=== PATIENT | male | born 2000 | race Caucasian/White ===

== ENCOUNTER 2021-04-23 16:11 | Emergency (ER) | payer OTHER, SELFPAY ==
[2021-04-23 16:17] VITALS: BP 164/91; PULSE 111; RESP 18; TEMP 36.3; O2SAT 100
--- NOTE | 2021-04-23 16:19 | W.ED.GENAD ---
Discharge Plan Disposition Patient Disposition: HOME Condition: Stable Discharge Details Clinical Impression: Foot laceration Primary Care Provider: Unknown,Unknown ED Provider: Mercedes An Home Meds and New Rx's Prescriptions: New cephalexin 500 mg capsule 500 mg PO TID 5 Days Qty: 15 RF: 0 Continued loratadine [Claritin] 10 mg Tablet 10 mg PO DAILY PRNRF: 0 Discharge Instructions Instructions: Laceration (ED) Additional Instructions: Keep wound clean and dry. You can take the dressing off to shower and let the water and soap run down over the wound. Do not scrub the area. Be sure to cover the area with a dressing when walking. Otherwise you can keep the wound open to air if resting foot upright at home to allow edges to dry and heal. Take the antibiotics as directed until finished. Alternate tylenol and motrin as needed and directed for pain. Follow-up with your primary care doctor in 7 to 10 days for suture removal. Return immediately to the emergency department if you develop any worsening or new concerning symptoms such as fever, redness, swelling or pain. Discharge Data Discharge Date/Time-TO BE ENTERED AT DEPARTURE: 04/23/21 18:29 Discharge Physician: Mercedes An Medical Decision Making 20-year-old male presents with laceration between first and second toes after running barefoot while playing soccer prior to arrival. Tetanus up-to-date. There is a 3.5 cm laceration between first and second toes. Will need closure with sutures. Grass debris noted within the wound. Patient extremely nervous about needles and sutures. Will place let and refer for foot x-ray. Foot x-ray negative for fracture or foreign body. 7 nylon 5-0 sutures placed. Wound covered with bacitracin and nonadherent dressing. Will cover with antibiotics prophylactically considering contamination of wound and the location. He was given 1 dose of Keflex here as well as bottle to go. He is traveling back to [place] in a few days where he lives. He was given a printed prescription as he is not sure what pharmacy he will fill this out where he is staying in [facility]. Advised to follow up with the primary care doctor for re-evaluation. Usual and customary return precautions given prior to discharge. Medical Records Medical records reviewed: Yes I reviewed the patient's medical records. Imaging Data Radiologic Study: Radiologist's impression: XR Left Foot Exam date and time: 04/23/2021 4:38 PM Age: 20 years old Clinical indication: Injury or trauma; Other: Toe laceration; Toes; Left great; Foreign body involvement not specified TECHNIQUE: Imaging protocol: XR Left foot. Views: 3 or more views. COMPARISON: No relevant prior studies available. FINDINGS: Bones/joints: Normal. Soft tissues: Soft tissue laceration/swelling is noted between the 1st and 2nd toes. IMPRESSION: Soft tissue swelling/laceration. No retained foreign body or fracture is seen. HPI General Mode of arrival: ambulatory. Date/Time Provider Initiated Documentation: 04/23/21 16:13. Limitations to Documentation: no limitations. Information obtained by: patient. HPI Narrative: Patient is a 20-year-old male presents with laceration between his first and second toes of his left foot sustained while running barefoot when playing soccer prior to arrival. Patient states he is unsure how he sustained a laceration but states he thought his left great toe got caught on his other foot. He denies any other injuries. He states his tetanus is up-to-date. Related Data Home Medications Medication Instructions Recorded Confirmed cephalexin 500 mg PO TID 5 Days #15 cap 04/23/21 loratadine [Claritin] 10 mg PO DAILY PRN 04/23/21 04/23/21 Previous Rx's Medication Instructions Recorded cephalexin 500 mg PO TID 5 Days #15 cap 04/23/21 Allergies Allergy/AdvReac Type Severity Reaction Status Date / Time No Known Allergies Allergy Unverified 04/23/21 16:16 Review of Systems All systems reviewed & are unremarkable except as noted in HPI and below [facility] Medical History (Updated 04/23/21 @ 18:14 by Mercedes An DO) Seasonal allergies Surgical History (Updated 04/23/21 @ 16:37 by Mercedes An DO) No significant past surgical history Social History Smoking/Tobacco Use Status: Current-Occasional Smoking risk assessment performed?: Yes Alcohol Intake: current Alcohol Intake frequency: 3 or more drinks per day Drug use: Occasionally Substance use type: marijuana Do you feel safe at home: Yes Do you feel safe in your relationship?: Yes Exam Const General: cooperative, healthy appearing and no acute distress HENMT Head: normal to inspection Mouth: oral mucosae normal Eyes General: appearance normal, both eyes and all related structures Neck Neck: normal visual inspection Resp Effort & Inspection: normal respiratory effort and able to speak in complete sentences Cardio Rate: regular rate Skin General skin exam: no rashes or lesions noted Neuro General: patient alert, patient awake and patient oriented x3 Motor: muscle tone normal throughout Extrem General: capillary refill normal Ankle/foot/toe images: 1. 3.5 cm laceration through dermis between L 1st and 2nd toe. Bleeding controlled. Grass debris noted within wound. No bony deformity. Other: Motor/sensory grossly intact left first and second toes. Psych Appearance: grossly normal Affect: normal affect Procedures Laceration Laceration 1: Site: lower extremity (Web space between 1st and 2nd toe) Side (If applicable): left Size (cm): 3.5 Description: linear Depth: simple, single layer Local Anesthetic: Lidocaine 1% Amount of anesthesia used (mL): 15 Pre-repair: wound explored Skin layer closed with: nylon Number of sutures: 7 Technique: simple, interrupted
--- NOTE | 2021-04-23 16:30 | DI.RAD_ITS ---
Exam(s) XR FOOT LT COMPLETE EXAM: XR FOOT LT COMPLETE CLINICAL HISTORY: laceration b/w 1st and 2nd toe, r/o fx/fb. TECHNIQUE: 2D digital imaging was performed. COMPARISON: No exams were available for comparison FINDINGS: BONES: No acute fracture is present. No bony destructive lesion is seen. JOINTS: No dislocation present. SOFT TISSUE: There is a soft tissue defect in the webspace between the 1st and 2nd toes. No radiopaq ue foreign body is identified. IMPRESSION: 1. No acute fracture or dislocation. 2. Soft tissue laceration between the 1st and 2nd toes. No radiopaque foreign body. DATA REPOSITORY: RADIATION DOSE DELIVERED:
[2021-04-23] MEDS: Lidocaine/Epinephri/Tetracaine Topical Gel 3 ML (16:41)
--- NOTE | 2021-04-23 17:12 | DI.VRAD_ITS ---
PROCEDURE INFORMATION: Exam: XR Left Foot Exam date and time: 04/23/2021 4:38 PM Age: 20 years old Clinical indication: Injury or trauma; Other: Toe laceration; Toes; Left great; Foreign body involvement not specified TECHNIQUE: Imaging protocol: XR Left foot. Views: 3 or more views. COMPARISON: No relevant prior studies available. FINDINGS: Bones/joints: Normal. Soft tissues: Soft tissue laceration/swelling is noted between the 1st and 2nd toes. IMPRESSION: Soft tissue swelling/laceration. No retained foreign body or fracture is seen. Dictated and Authenticated by: Lukas Rogers MD. Ordering:ROSALEE Long MD
[2021-04-23] MEDS: Ibuprofen 600 MG TAB PO (17:50)
[2021-04-23] MEDS: Cephalexin 500 MG CAP, 4 CAPS/BTL PO (18:23)
[2021-04-23] MEDS: Cephalexin 500 MG CAP PO (18:23)
== END 2021-04-23 18:29 | disposition home or self-care (01) ==
PROVIDERS: Emergency Provider Physician Assistant
DX: S91.112A Laceration without foreign body of left great toe without damage to nail, initial encounter (principal); W26.8XXA Contact with other sharp object(s), not elsewhere classified, initial encounter
CPT/HCPCS: 12002; 99283; 73630